=== PATIENT | female | born 1945 | race Caucasian/White ===

== ENCOUNTER 2023-10-17 14:13 | Observation (INO) ==
[2023-10-17 14:47] LABS: ABS Eosinophils 0.1 10^3/uL (0.0-0.5); ABS Lymphocytes 1.2 10^3/uL (1.0-4.8); ABS Neutrophils 3.6 10^3/uL (1.5-7.6); ABS Nucleated RBC 0.01 10^3/ul; Eosinophil % 1.7 %; Hematocrit 37.8 % (35-45); Hemoglobin 12.7 g/dL (11.5-14.3); Lymphocyte % 19.7 %; Mean Corpuscular Hemoglobin 31.7 pg (27-33); Mean Corpuscular Hgb Conc 33.6 g/dL (31-36); Mean Corpuscular Volume 94.5 fL (80-97); Mean Platelet Volume 7.8 fL (7.5-11.2); Nucleated Red Blood Cells % 0.1 %/100WBC (0.0-0.8); Platelet Count 201 10^3/uL (150-450); Red Cell Distribution Width 13.8 % (12-17); White Blood Count 5.9 10^3/uL (3.8-11.8)
[2023-10-17 14:58] LABS: INR 1.01 (0.83-1.13)
[2023-10-17 15:29] LABS: Albumin 4.3 g/dL (3.2-5.2); Albumin/Globulin Ratio 1.7 (1-3); Calcium 9.4 mg/dL (8.6-10.3); Creatinine, Serum 0.78 mg/dL (0.51-0.95); Globulin 2.5 g/dL (2-4); Total Bilirubin 0.5 mg/dL (0.2-1.0); Total Protein 6.8 g/dL (6.4-8.9); eGFR CKD-EPI 78.2 (>60)
[2023-10-17 15:44] LABS: Potassium 4.6 mmol/L (3.5-5.0)
[2023-10-17 16:08] LABS: High Sensitivity Troponin 1 Hr 4 pg/mL (<15)
[2023-10-17] MEDS: Iohexol 350 (CONTRAST) 500 ML MDV IV ONE (18:15)
[2023-10-18] MEDS ORDERED: Regadenoson 0.4 MG/5 ML SYRINGE ONE (07:52)
[2023-10-18 07:58] LABS: HDL Cholesterol 66.1 mg/dL
[2023-10-18] MEDS ORDERED: Sulfur Hexaflouride MICROSPHR 25 MG VIAL ONE ×2 (07:58→12:51)
[2023-10-18 14:14] VITALS: BP 140/87
== END 2023-10-18 17:55 | disposition home or self-care (01) ==
LOC: ED 14:13 → EDHOLD 14:13 → MEDTELE 10-18 05:29
PROVIDERS: ADMIT Internal Medicine; ATTEND Hospitalist